=== PATIENT | male | born 1955 | race African-American/Black ===

== ENCOUNTER → 2023-04-06 09:33 | Outpatient (REF) | payer MEDICARE, OTHER, SELFPAY | LOC: RCS 09:33 | PROVIDERS: ATTENDING PHYSICIAN Internal Medicine Cardiovascular Disease; FAMILY PHYSICIAN Family Medicine | DX: E85.4 Organ-limited amyloidosis (principal) | CPT/HCPCS: 93306; 93356 ==

== ENCOUNTER → 2025-02-01 10:44 | Outpatient (REF) | payer MEDICARE, OTHER, SELFPAY | LOC: RAD 10:44 | PROVIDERS: ATTENDING PHYSICIAN Student in an Organized Health Care Education/Training Program; FAMILY PHYSICIAN Nurse Practitioner Family | DX: M54.50 Low back pain, unspecified (principal); M43.16 Spondylolisthesis, lumbar region | CPT/HCPCS: 72131 ==